=== PATIENT | female | born 1960 | race Caucasian/White ===

== ENCOUNTER 2020-08-09 05:55 | Day surgery (SDC) | payer OTHER ==
[2020-08-08 16:11] LABS: Absolute Lymphocytes (CBC) 2.4 K/uL (0.7-4.9); Basophils % 0.8 % (0-1.3); Hematocrit 41.1 % (36.0-45.0); Lymphocytes % 34.3 % (15.3-44.8); MPV 8.5 fL (7.6-11.3); RBC Red Blood Cell Count 4.44 M/uL (3.86-4.86)
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
--- OUTSIDE RECORDS SUMMARY | 2020-08-09 06:06 | XMS REPORT | Continuity of Care Document ---
:1960 Author Organization [facility] t Address [address] [place] [address] Care Team Providers Name Role Phone Ronen Schmitz MD Attending Clinician Problems This patient has no known problems. Allergies, Adverse Reactions, Alerts This patient has no known allergies or adverse reactions. Medications This patient has no known medications. Procedures This patient has no known procedures. Encounters Start End Encounter Admission Attending Care Care Encounter Source Date/Time Date/Time Type Type Clinicians Facility Department ID 2019-12-24 2019-12-24 Emergency ASHLEY Schmitz [id number] 18:22:51 22:18:[address] [facility] [id number] Ronen Garcia [id number] [facility] [phone] [address] ([facility]) Results This patient has no known results.
[2020-08-09] MEDS ORDERED: Ringers Lactate 1,000 ML IV ONE (06:36)
[2020-08-09] MEDS ORDERED: MIDAZOLAM HCL 2 MG/2 ML INJ ONE (06:53)
[2020-08-09] MEDS ORDERED: propofoL 200 MG/20 ML VIAL IV ONE (06:53)
[2020-08-09] MEDS ORDERED: LIDOCAINE 1% MPF 5 ML VIAL ONE (06:53)
[2020-08-09] MEDS ORDERED: FENTANYL CITR 100 MCG/2 ML ONE (06:53)
[2020-08-09] MEDS ORDERED: Ringers Lactate 1,000 ML IV SCH (07:00)
[2020-08-09] MEDS ORDERED: DOXYCYCLINE 200 MG in NA CHLORIDE 0.9% 250 ML IVPB ONE (07:00)
[2020-08-09] MEDS ORDERED: LIDOCAINE 1% W/EPI 1:100,000 MDV 20 ML VIAL ONE (07:03)
[2020-08-09] MEDS ORDERED: SILVER NITRATE 1 APPL TOP ONE (07:03)
[2020-08-09] MEDS ORDERED: dexAMETHasone 4 MG/ML VIAL ONE (07:23)
[2020-08-09] MEDS ORDERED: ONDANSETRON 4 MG/2 ML VIAL ONE (07:23)
[2020-08-09] MEDS ORDERED: KETOROLAC 30 MG/ML INJ ONE (07:23)
--- NOTE | 2020-08-09 07:33 | P.BOP ---
Preoperative diagnosis: Post menopausal bleeding Postoperative diagnosis: same Primary procedure: hysteroscopy, D&C Estimated blood loss: Less than 5ml Specimen: endometrial currettings Anesthesia: General Complications: None Transferred to: Recovery Room Condition: Good
[2020-08-09 07:43] VITALS: TEMP 97.1
[2020-08-09] MEDS ORDERED: NA CHLORIDE 0.9% 1,000 ML ONE (08:29)
[2020-08-09 09:22] VITALS: BP 147/56; O2SAT 99
--- NOTE | 2020-08-09 09:31 | OP ---
Surgeon: Wan Garcia MD Preoperative Diagnosis: Postmenopausal bleeding. Postoperative Diagnosis: Postmenopausal bleeding. Procedure: Hysteroscopy, dilatation and curettage of the uterine endometrium. Description Of Procedure: After a satisfactory level of general anesthesia was obtained, the patient was prepped and draped in the usual fashion in high leg holders. A speculum was placed into the vag marguerite, cervix visualized, grasped with single-tooth tenaculum. Hysteroscopy was performed revealing a normal-appearing uterine endometrium with no evidence of polyps or other significant abnormality. Th is was followed by dilation of the cervix with a Mady curette and curettage was performed productiv e of minimal tissue. The patient was awakened and taken to recovery room in satisfactory condition. Estimated blood loss was less than 5 mL. She received doxycycline 200 mg IV preoperatively for prop hylaxis. Anesthesia: OLAF Baer and Dr. Álvaro Greene. HARRISG/MODL Voice ID: [id number] Report ID: [id number]
--- NOTE | 2020-08-09 09:43 | DS ---
Final Hospital Discharge Diagnosis: Postmenopausal bleeding. Complications: None. Procedures: Hysteroscopy, dilatation and curettage of uterine endometrium. Hospital Course: The patient is a 59-year-old female with postmenopausal bleeding who unde rwent hysteroscopy and D and C. Pathology report is pending. Lab work included an admission hemoglo bin and hematocrit of 14.0 and 41.1. Negative serum test. COVID test is pending. She was dismissed with prescription for Tylenol No.3 #5 for pain relief with usual post D and C activity res trictions, to be seen back in my office in 2 weeks for followup. MITCHEL/JEANINE Voice ID: [id number] Report ID: [id number]
== END 2020-08-09 08:46 | disposition home or self-care (01) ==
LOC: OR 05:55
PROVIDERS: ATTEND Specialist
PROC: 0UJD8ZZ Inspection of Uterus and Cervix, Via Natural or Artificial Opening Endoscopic (ICD-10-PCS; 2020-08-09)
PROC: 0UDB7ZX Extraction of Endometrium, Via Natural or Artificial Opening, Diagnostic (ICD-10-PCS; principal; 2020-08-09 07:00)
DX: N95.0 Postmenopausal bleeding (principal); E03.9 Hypothyroidism, unspecified; Z20.828 Contact with and (suspected) exposure to other viral communicable diseases; Z80.49 Family history of malignant neoplasm of other genital organs
CPT/HCPCS: 58558; 85025; 36415; 84703; 88305; U0002; J2704; J1100; J2250; J3010; J7120; J7050; J7030; J2405